=== PATIENT | female | born 1970 | race Caucasian/White ===

== ENCOUNTER 2024-04-01 09:45 | Emergency (ER) | payer MEDICAID ==
[~2024-04-01] VITALS: Ht 172.7 cm; Wt 65.3 kg
[2024-04-01 09:47] VITALS: O2SAT 97
[2024-04-01] MEDS ORDERED: ACETAMINOPHEN 500 MG TABLET ONE (10:06)
[2024-04-01] MEDS ORDERED: IBUPROFEN 400 MG TABLET ONE (10:07)
[2024-04-01] MEDS: IBUPROFEN 400 MG TABLET PO ONE (10:57)
[2024-04-01] MEDS: ACETAMINOPHEN 500 MG TABLET PO ONE (10:57)
== END 2024-04-01 10:47 | disposition home or self-care (01) ==
LOC: ER 09:48
DX: S92.351A Displaced fracture of fifth metatarsal bone, right foot, initial encounter for closed fracture (principal); X50.1XXA Overexertion from prolonged static or awkward postures, initial encounter; Y93.89 Activity, other specified; Y92.89 Other specified places as the place of occurrence of the external cause; Y99.8 Other external cause status
CPT/HCPCS: 73620; A4606; A4663; A9150